=== PATIENT | female | born 1960 | race Caucasian/White ===

== ENCOUNTER 2018-06-01 10:44 | Day surgery (SDC) | payer OTHER ==
[2018-05-31 18:04] VITALS: BMI 28.4
[2018-06-01] MEDS ORDERED: LIDOCAINE HCL 1%, 10 MG/ML (20ML VIAL) ONE (12:07)
[2018-06-01] MEDS ORDERED: SUCCINYLCHOLINE CHLORIDE 200 MG/10 ML VIAL ONE (12:16)
[2018-06-01] MEDS ORDERED: PROPOFOL 20 ML ONE ×2 (12:16)
[2018-06-01] MEDS ORDERED: MIDAZOLAM HCL 2 MG/2 ML SINGLE DOSE VIAL ONE ×2 (12:16→12:40)
[2018-06-01] MEDS ORDERED: ROCURONIUM BROMIDE 50 MG/5 ML VIAL ONE (12:28)
[2018-06-01] MEDS ORDERED: ceFAZolin SODIUM 1 GM VIAL IVPB ONE (12:50)
[2018-06-01] MEDS ORDERED: LIDOCAINE HCL 1%, 10 MG/ML (50 mL VIAL) IJ ONE (12:53)
[2018-06-01] MEDS ORDERED: ACETAMINOPHEN 1000 MG/100 ML VIAL (NON FORMULARY) IVPB ONE (13:40)
[2018-06-01] MEDS ORDERED: IBUPROFEN 800 MG/8 ML IJ IVPB SCH (13:45)
[2018-06-01] MEDS ORDERED: DEXTROSE 5%-0.45% SALINE 1,000 ML IV SCH (13:45)
[2018-06-01] MEDS ORDERED: ONDANSETRON 4 MG/2 ML VIAL IVPUSH PRN (13:51)
[2018-06-01] MEDS ORDERED: oxyCODONE HCL 5 MG TABLET PO PRN ×2 (13:51)
[2018-06-01] MEDS ORDERED: LACTATED RINGERS SOLUTION 1,000 ML IV SCH (14:00)
[2018-06-01 14:34] VITALS: BP 95/44; PULSE 70; TEMP 97.8
--- NOTE | 2018-06-02 10:03 | OP ---
DATE OF OPERATION: 06/01/2018 PREOPERATIVE DIAGNOSIS: Urge urinary incontinence. POSTOPERATIVE DIAGNOSIS: Urge urinary incontinence. PROCEDURE: InterStim removal, lead and battery, and placement of lead and battery. SURGEON: Sae Avery MD ESTIMATED BLOOD LOSS: Minimal. ANESTHESIA: IV sedation with local. SPECIMENS: The battery and the lead. FINDINGS: S3 stimulation at low amplitude. PREOPERATIVE INDICATIONS: The patient is a 57-year-old female who was previously treated with InterStim neuromodulation therapy. She had very good results over many years. The battery is now at its end of life and needs to be replaced. OPERATION: The patient was brought to the OR and placed on the table in the prone position. All pressure points were protected. IV sedation and IV antibiotics were given. The back was prepped and draped sterilely. An incision was made over the battery site previously put in and the battery was removed. The lead appeared to be frayed and decision was made to replace the lead as well. Incision was made paramedian on the left side and the lead was removed in total. On the right side then finder needles were placed to find the S3 foramen. Eventually an ideal placement was found with good S3 response at low amplitude over the entire needle. No calf rotation was noted. However, toe reflection and anal triston were seen on low amplitude. The patient also reports vaginal sensation. Incision was made down toward the sacrum and the quadripolar lead was placed using Seldinger technique under fluoroscopic guidance. This was then tunneled to the existing battery site. A new battery was connected. Impedances were good and all wounds were closed in 2 layers with 3-0 Vicryl and 4-0 Monocryl. Wounds were dressed. The patient was woken up. SAE AVERY M.D. [id number]
--- NOTE | 2018-06-05 14:32 | PATH ---
Surgical Pathology Report Patient Name: JEANNETTE STORY Med. Rec. #: [id number] /Age/Gender: 1960 (Age: 57) / F Account: [id number] Location: [facility] Taken: 06/01/2018 Received: 06/02/2018 Reported: 06/05/2018 Physicians: Sae Avery M.D. Specimen(s) Received INTERSTIM LEAD AND BATTERY Clinical History Interstim battery end of life, urine urgency incontinence Final Diagnosis INTERSTIM LEAD AND BATTERY, REMOVAL: JUNIOR DATA ANALYST (BATTERY AND LEAD). MACROSCOPIC DIAGNOSIS. Electronically Signed Mara Israel M.D. Gross Description Received fresh labeled "interstim lead and battery," is a 5.0 x 4.3 x 0.7 cm mayes metallic device, consistent with a battery. The specimen has the following inscription: "[employer] InterStim II SN: [id number]." Separately received within the same container is a 30 cm in length metallic wire. No soft tissue is present. No sections are submitted, gross only. /06/02/2018 saudi06/02/2018
== END 2018-06-01 14:40 | disposition home or self-care (01) ==
LOC: JASU-SURG 10:44
PROVIDERS: ATTEND Urology
PROC: 0JH70BZ Insertion of Single Array Stimulator Generator into Back Subcutaneous Tissue and Fascia, Open Approach (ICD-10-PCS; 2018-06-01)
PROC: 01PY0MZ Removal of Neurostimulator Lead from Peripheral Nerve, Open Approach (ICD-10-PCS; 2018-06-01)
PROC: 01HY0MZ Insertion of Neurostimulator Lead into Peripheral Nerve, Open Approach (ICD-10-PCS; 2018-06-01)
PROC: 0JPT0MZ Removal of Stimulator Generator from Trunk Subcutaneous Tissue and Fascia, Open Approach (ICD-10-PCS; principal; 2018-06-01 12:00)
DX: N39.41 Urge incontinence (principal)
CPT/HCPCS: 64581; 64590; C1778; L8679; 88300-TC